=== PATIENT | female | born 1970 | race Two or more races ===

== ENCOUNTER 2018-03-05 15:59 | Outpatient (CLI) | payer OTHER | END 2018-03-05 16:10 | disposition home or self-care (01) | LOC: RAD 501 15:59 | DX: Z96.652 Presence of left artificial knee joint (principal) ==

== ENCOUNTER 2018-06-13 16:05 | Emergency (ER) | payer OTHER ==
[~2018-06-13] VITALS: Ht 152.4 cm; Wt 86.2 kg
[2018-06-13] MEDS ORDERED: SINGULAIR10 MG (16:40)
[2018-06-13] MEDS ORDERED: SYMBICORT 16010.2 GM (16:40)
[2018-06-13] MEDS ORDERED: XYZAL5 MG (16:40)
[2018-06-13] MEDS ORDERED: SPIRIVA RESPIMAT4 G1 (16:41)
[2018-06-13] MEDS ORDERED: KETO10TA2 PO (19:31)
== END 2018-06-13 21:34 | disposition home or self-care (01) ==
LOC: ER 16:05
DX: S63.591A Other specified sprain of right wrist, initial encounter (principal); W18.39XA Other fall on same level, initial encounter; Y93.89 Activity, other specified; Y92.89 Other specified places as the place of occurrence of the external cause; Y99.8 Other external cause status

== ENCOUNTER → 2018-08-12 08:45 | Outpatient (CLI) | payer OTHER ==
[~2018-08-12 08:45] MED LIST: KETO10TA2 PO; SINGULAIR10 MG; SPIRIVA RESPIMAT4 G1; SYMBICORT 16010.2 GM; XYZAL5 MG
== END | disposition home or self-care (01) ==
LOC: LAB 08:45
DX: M06.09 Rheumatoid arthritis without rheumatoid factor, multiple sites (principal); C90.00 Multiple myeloma not having achieved remission; E03.8 Other specified hypothyroidism; M15.0 Primary generalized (osteo)arthritis; I10 Essential (primary) hypertension; E55.9 Vitamin D deficiency, unspecified

== ENCOUNTER 2018-08-19 07:21 | Day surgery (SDC) | payer OTHER | END 2018-08-19 17:00 | disposition home or self-care (01) | LOC: CIR.AMB 07:21 | DX: M24.831 Other specific joint derangements of right wrist, not elsewhere classified (principal) ==

== ENCOUNTER 2019-11-18 14:54 | Outpatient (CLI) | payer OTHER | END 2019-11-18 15:01 | disposition home or self-care (01) | LOC: RAD 14:54 | DX: M79.641 Pain in right hand (principal) ==

== ENCOUNTER 2020-11-28 13:49 | Outpatient (CLI) | payer OTHER | END 2020-11-28 13:51 | disposition home or self-care (01) | LOC: RAD 13:49 | PROVIDERS: ATTEND Orthopaedic Surgery Hand Surgery | DX: M25.532 Pain in left wrist (principal) ==

== ENCOUNTER 2020-12-26 14:05 | Outpatient (CLI) | payer OTHER | END 2020-12-26 14:07 | disposition home or self-care (01) | LOC: RAD 14:05 | PROVIDERS: ATTEND Orthopaedic Surgery Hand Surgery | DX: S52.532A Colles' fracture of left radius, initial encounter for closed fracture (principal) ==

== ENCOUNTER 2021-07-14 10:45 | Outpatient (CLI) | payer OTHER | END 2021-07-14 10:57 | disposition home or self-care (01) | LOC: RAD 10:45 | PROVIDERS: ATTEND Orthopaedic Surgery | DX: M17.11 Unilateral primary osteoarthritis, right knee (principal); Z96.652 Presence of left artificial knee joint; M25.532 Pain in left wrist; M79.641 Pain in right hand ==

== ENCOUNTER 2021-07-25 13:13 | Outpatient (CLI) | payer OTHER | END 2021-07-25 13:23 | disposition home or self-care (01) | LOC: NUCLEAR 13:13 | PROVIDERS: ATTEND Orthopaedic Surgery | DX: M81.0 Age-related osteoporosis without current pathological fracture (principal) ==

== ENCOUNTER 2021-08-09 07:11 | Outpatient (CLI) | payer OTHER | END 2021-08-09 07:22 | disposition home or self-care (01) | LOC: SONOGRAMA 07:11 → MAMO-SONO 07:15 → SONOGRAMA 07:22 | PROVIDERS: ATTEND Internal Medicine Rheumatology | DX: R10.84 Generalized abdominal pain (principal); R94.5 Abnormal results of liver function studies; R10.11 Right upper quadrant pain ==